=== PATIENT | female | born 1990 | race Hispanic/Latino ===

== ENCOUNTER 2021-10-14 18:54 | Emergency (ER) | payer OTHER, MEDICAID ==
[~2021-10-14] VITALS: Ht 167.6 cm; Wt 113.4 kg
[2021-10-14 18:55] VITALS: BP 150/86
[2021-10-14] MEDS ORDERED: CEFTRIAXONE 1G VIAL IM ONE (19:30)
[2021-10-14] MEDS ORDERED: ACETAMINOPHEN 500 MG TABLET PO ONE (19:30)
[2021-10-14] MEDS ORDERED: AMOX1TAB16 PO (19:59)
[2021-10-14] MEDS ORDERED: ACET-2247 PO (19:59)
== END 2021-10-14 20:06 | disposition home or self-care (01) ==
LOC: EDH 18:54
DX: O98.513 Other viral diseases complicating pregnancy, third trimester (principal); U07.1 COVID-19; B34.9 Viral infection, unspecified; H66.91 Otitis media, unspecified, right ear; Z3A.36 36 weeks gestation of pregnancy
CPT/HCPCS: 87635; 87804 ×2; 87880; 96372; 99283; C9803; J0696